=== PATIENT | female | born 1995 | race American Indian/Alaskan Native ===

== ENCOUNTER 2018-05-20 15:15 | Outpatient (CLI) | payer BC, MEDICAID ==
[2018-05-20 16:06] VITALS: BP 120/79
== END 2018-05-20 16:35 | disposition home or self-care (01) ==
LOC: TRG 15:15
PROVIDERS: ATTEND Obstetrics & Gynecology Gynecology
DX: O47.1 False labor at or after 37 completed weeks of gestation (principal); Z3A.38 38 weeks gestation of pregnancy
CPT/HCPCS: 59025

== ENCOUNTER 2018-06-01 10:36 | Inpatient (IN) | payer BC, MEDICAID ==
[2018-06-01] MEDS ORDERED: LACTATED RINGERS 1,000 ML ONE (11:06)
[2018-06-01] MEDS ORDERED: BRETHINE SUB-Q PRN (11:31)
[2018-06-01] MEDS ORDERED: MINERAL OIL PO PRN (11:31)
[2018-06-01] MEDS ORDERED: BRETHINE IVP PRN (11:31)
[2018-06-01] MEDS ORDERED: ePHEDrine SULFATE IV PRN ×2 (11:31→19:33)
[2018-06-01 11:40] LABS: Basophils % (Auto) 0.2 % (0.0-1.8); Eosinophils # (Auto) 0.1 K/mm3 (0.0-0.4); Hematocrit 32.9 % (30.3-42.9); Hemoglobin 10.8 gm/dl (10.1-14.3); Lymphocytes # (Auto) 1.5 K/mm3 (1.2-5.4); Lymphocytes % (Auto) 12.7 % (13.4-35.0); Mean Corpuscular HGB Conc 33 % (30-34); Monocytes # (Auto) 1.1 K/mm3 (0.0-0.8); Monocytes % (Auto) 9.1 % (0.0-7.3); Platelet Count 239 K/mm3 (140-440); Red Cell Distribution Width 15.7 % (13.2-15.2)
[2018-06-01 11:43] LABS: Mean Corpuscular Hemoglobin 23 pg (28-32); Mean Corpuscular Volume 69 fl (79-97)
--- NOTE | 2018-06-01 11:55 | History and Physical Report ---
History of Present Illness Date of examination: 06/01/18 Date of admission: 06/01/18 10:37 Chief complaint: Leaking of water from vagina since 02:00 this morning. History of present illness: Patient presents to L&D with complaint of leaking from vagina since 02:00 this morning. Patient states fluid has been clear. Patient denies vaginal bleeding. Patient received care at [facility] [employer]. records are available. LMP 09/05/17. EDC 06/03/18 based on US performed at 11 weeks, 6 days of gestation. EGA 39 weeks, 5 days gestation today. Patient reports she had anemia during but did not take her iron supplements regularly. She also had an elevated 1 hour sugar test during her but had a normal 3 hour OGTT. Patient has history of genital herpes but has been taking Valtrex for suppression; she denies any lesions or prodromal symptoms. labs are as follows: O+, antibody screen negative, rubella immune, pap negative, RPR nonreactive, hepatitis B surface antigen negative, HIV negative, hemoglobin electrophoresis AA, diabetes screen 141 (3 hr. OGTT: 73, 114, 97, 90) , GC negative, CT negative, GBS positive. Past History Past Medical History: no pertinent history Past Surgical History: no surgical history [employer] History: herpes (on Valtrex suppression; pt. denies lesions or prodromal symptoms). denies: chlamydia, gonorrhea, hepatitis B, hepatitis C, HIV, syphilis Family/Genetic History: diabetes, hypertension Social history: single, lives with family, full code. denies: smoking, alcohol abuse, prescription drug abuse, IV drug use - Obstetrical History Expected Date of Delivery: 06/03/18 Actual Gestation: 39 Week(s) 5 Day(s) : 1 Para: 0 Hx # Term Pregnancies: 1 Number of Pregnancies: 0 Spontaneous Abortions: 0 Induced : 0 Number of Living Children: 0 Medications and Allergies Allergies Allergy/AdvReac Type Severity Reaction Status Date / Time No Known Allergies Allergy Unverified 06/01/18 11:18 Home Medications Medication Instructions Recorded Confirmed Last Taken Type Cholecalciferol (Vitamin D3) 1 cap PO DAILY 05/20/18 06/01/18 05/18/18 History [Vitamin D3] Ferrous Sulfate [Feosol 325 MG tab] 1 tab PO TID 05/20/18 06/01/18 05/18/18 History Pnv No.95/Ferrous Fum/Folic AC 1 tab PO DAILY 05/20/18 06/01/18 05/31/18 21:00 History [ Vitamins Tablet] 1 Valacyclovir HCl [Valtrex] 1,000 mg PO DAILY 05/20/18 06/01/18 05/31/18 21:00 History 1 Active Meds: Active Medications Ephedrine Sulfate (Ephedrine Sulfate) 10 mg IV Q2M PRN PRN Reason: Hypotension Fentanyl (Sublimaze) 100 mcg IV Q2H PRN PRN Reason: Labor Pain Ampicillin Sodium (Polycillin/Ns 2 Gm/100 Ml) 2 gm in 100 mls @ 100 mls/hr IV ONCE ONE; Protocol Stop: 06/01/18 12:59 Lactated Ringer's (Lactated Ringers) 1,000 mls @ 125 mls/hr IV DIRECT OBI Oxytocin/Sodium Chloride (Pitocin/Ns 20 Unit/1000ml Drip) 20 units in 1,000 mls @ 125 mls/hr IV DIRECT OBI Oxytocin/Sodium Chloride (Pitocin/Ns 30 Unit/500ml) 30 units in 500 mls @ 1 mls /hr IV TITR OBI; Protocol Oxytocin/Sodium Chloride (Pitocin/Ns 30 Unit/500ml) 30 units in 500 mls @ 0 mls /hr IV TITR OBI; Protocol Ampicillin Sodium (Ampicillin/Ns 1 Gm/50 Ml) 1 gm in 50 mls @ 100 mls/hr IV Q4H OBI; Protocol Lidocaine (Xylocaine 2%) 20 ml INFILTRATI ONCE ONE Stop: 06/01/18 12:01 Mineral Oil (Mineral Oil) 30 ml PO QHS PRN PRN Reason: Constipation Terbutaline Sulfate (Brethine) 0.25 mg SUB-Q ONCE PRN PRN Reason: Hyperstimulation/Hypertonicity Terbutaline Sulfate (Brethine) 0.25 mg IVP ONCE PRN PRN Reason: Hyperstimulation/Hypertonicity Valacyclovir HCl (Valtrex) 500 mg PO BID OBI Review of Systems All systems: negative (leaking of water from vagina) - Vital Signs Vital signs: Vital Signs Pulse BP 86 135/92 06/01/18 11:00 06/01/18 11:00 Temp Pulse Resp BP Pulse Ox 73 18 129/82 06/01/18 11:31 06/01/18 11:26 06/01/18 11:31 - Physical Exam Breasts: Positive: deferred Cardiovascular: Regular rate, Normal S1, Normal S2, No murmurs Lungs: Positive: Clear to auscultation Abdomen: Positive: normal appearance, soft. Negative: distention, tenderness, guarding, rigidity Genitourinary (Female): Positive: normal external genitalia, normal perenium. Negative: perineal/vulvar lesions (no lesions seen on careful exam with bright light upon admission) Vagina: Positive: other (pooling of clear amniotic fluid) Uterus: Positive: enlarged. Negative: tender Anus/Rectum: Positive: normal perianal skin Extremities: Positive: normal. Negative: tenderness, edema - Obstetrical FHR: category 2 Uterine Contraction Monitor Mode: External Cervical Dilatation: 1 Cervical Effacement Percentage: 70 station: -1 Uterine Contraction Pattern: Irregular Uterine Contraction Intensity: Mild Results Result Diagrams: 06/01/18 11:00 Abnormal lab results 06/01/18 Range/Units 11:00 WBC 11.9 H (4.5-11.0) K/mm3 MCV 69 L (79-97) fl MCH 23 L (28-32) pg RDW 15.7 H (13.2-15.2) % Lymph % (Auto) 12.7 L (13.4-35.0) % Hall % (Auto) 9.1 H (0.0-7.3) % Hall # 1.1 H (0.0-0.8) K/mm3 Seg Neutrophils % 77.0 H (40.0-70.0) % Seg Neutrophils # 9.2 H (1.8-7.7) K/mm3 All other labs normal. Assessment and Plan A: at 39 weeks, 5 days gestation. Spontaneous rupture of membranes prior to labor. GBS positive. HSV 2 positive on Valtrex suppression. P: Admit. GBS prophylaxis. Continue Valtrex suppression. Pitocin augmentation of labor. Continuous EFM. Discussed with patient risks and benefits of Pitocin augmentation of labor. Patient consented to Pitocin augmentation of labor.
[2018-06-01] MEDS ORDERED: LACTATED RINGERS 1,000 ML IV SCH (12:00)
[2018-06-01] MEDS ORDERED: PITOCin/NS 30 UNIT/500ML 30 UNITS/500 ML BAG IV SCH ×2 (12:00)
[2018-06-01] MEDS ORDERED: XYLOCAINE 2% INFILTRATI ONE (12:00)
[2018-06-01] MEDS: LACTATED RINGERS 1,000 ML IV SCH ×2 (12:00→18:39)
[2018-06-01] MEDS ORDERED: POLYCILLIN/NS 2 GM/100 ML 2 GM/100 ML BAG IV ONE (12:00)
[2018-06-01] MEDS ORDERED: PITOCin/NS 20 UNIT/1000ML DRIP 20 UNITS/1,000 ML BAG IV SCH (12:00)
[2018-06-01] MEDS ORDERED: VALTREX PO SCH (12:00)
[2018-06-01 12:14] LABS: Alanine Aminotransferase 7 units/L (7-56); Uric Acid 3.3 mg/dL (3.5-7.6)
[2018-06-01] MEDS: SUBLIMAZE IV PRN ×2 (12:49→15:03)
[2018-06-01 14:27] LABS: Hematocrit 33.8 % (30.3-42.9); Hemoglobin 10.7 gm/dl (10.1-14.3); Mean Corpuscular HGB Conc 32 % (30-34); Platelet Count 247 K/mm3 (140-440); Red Blood Count 4.86 M/mm3 (3.65-5.03); Red Cell Distribution Width 15.4 % (13.2-15.2)
[2018-06-01 14:31] LABS: Bilirubin,Urine NEG (Negative); Blood,Urine SM (Negative); Color,Urine Yellow (Yellow); Hyaline Casts,Urine 1 /LPF; Mucus,Urine FEW /HPF; Protein,Urine <15 mg/dL mg/dL (Negative)
[2018-06-01 14:33] LABS: Mean Corpuscular Hemoglobin 22 pg (28-32); Mean Corpuscular Volume 70 fl (79-97)
[2018-06-01 14:38] LABS: Alanine Aminotransferase 7 units/L (7-56); Albumin 3.8 g/dL (3.9-5); BUN/Creatinine Ratio 14; Blood Urea Nitrogen 7 mg/dL (7-17); Calcium 8.9 mg/dL (8.4-10.2); Hemolysis Index 1
[2018-06-01 14:40] LABS: Amphetamine Screen,Urine PRESUMPTIVE NEGATIVE; Benzodiazepines Screen,Urine PRESUMPTIVE NEGATIVE; Cannabinoid Screen,Urine PRESUMPTIVE NEGATIVE; Cocaine Screen,Urine PRESUMPTIVE NEGATIVE; Methadone Screen,Urine PRESUMPTIVE NEGATIVE; Opiate Screen,Urine PRESUMPTIVE NEGATIVE
[2018-06-01] MEDS ORDERED: ZOFRAN IV ONE (14:50)
[2018-06-01] MEDS ORDERED: ZOFRAN ONE (14:55)
[2018-06-01] MEDS: AMPICILLIN/NS 1 GM/50 ML 1 GM/50 ML BAG IV SCH ×2 (16:17→20:14)
[2018-06-01] MEDS ORDERED: STADOL IV PRN (17:00)
[2018-06-01] MEDS ORDERED: NARCAN 2 MG/2 ML IV PRN (19:33)
--- NOTE | 2018-06-01 19:35 | Anesthesia Consultation ---
Anesthesia Consult and Med Hx Date of service: 06/01/18 - Airway Anesthetic Teeth Evaluation: Good ROM Head & Neck: Adequate Mental/Hyoid Distance: Adequate Mallampati Class: Class II Intubation Access Assessment: Probably Good - Pulmonary Exam CTA: Yes - Cardiac Exam Cardiac Exam: RRR - Pre-Operative Health Status ASA Pre-Surgery Classification: ASA2 Proposed Anesthetic Plan: Epidural, Spinal - Pulmonary Hx Smoking: No Hx Asthma: No COPD: No Hx Pneumonia: No - Cardiovascular System Hx Hypertension: No - Central Nervous System Hx Seizures: No Hx Psychiatric Problems: No - Endocrine Hx Renal Disease: No Hx End Stage Renal Disease: No Hx Hypothyroidism: No Hx Hyperthyroidism: No - Hematic Hx Anemia: Yes (ON IRON TID) Hx Sickle Cell Disease: No - Other Systems Hx Alcohol Use: No
--- NOTE | 2018-06-01 19:35 | Anesthesia Day of Surgery ---
Anesthesia Day of Surgery - Day of Surgery Patient Examined: Yes Patient H&P Reviewed: Yes Patient is NPO: Yes
[2018-06-01] MEDS ORDERED: fentaNYL-BUPIV 2 MCG/ML-0.125% 200 MCG/100 ML BAG EPIDURAL SCH (20:00)
[2018-06-01] MEDS ORDERED: CYTOTEC ONE (23:54)
[2018-06-02] MEDS ORDERED: PHENERGAN PR PRN (00:22)
[2018-06-02] MEDS ORDERED: LANSINOH TP PRN (00:22)
[2018-06-02] MEDS ORDERED: TYLENOL PO PRN (00:22)
[2018-06-02] MEDS ORDERED: TUCKS PAD TP PRN (00:22)
[2018-06-02] MEDS ORDERED: CYTOTEC PR ONE (00:35)
--- NOTE | 2018-06-02 00:45 | Procedure Note ---
OB Delivery Note - Delivery Date of Delivery: 06/01/18 Surgeon: TA MELGOZA Estimated blood loss: other (400 cc) - Vaginal Delivery presentation: vertex Delivery position: OA Delivery induction: oxytocin Delivery monitor: external FHT, external uterine Route of delivery: Delivery placenta: manual Delivery cord: 3 umbilical vessels Episiotomy: none Delivery laceration: none Anesthesia: epidural Delivery comments: of liveborn female infant weighing 6 lb. 11.5 oz. over intact perineum with apgars of 8/9. Baby placed immediately on maternal chest after delivery. Spontaneous cry and respirations. Baby bulb suctioned. Manual removal of placenta; EBL 400 cc. Pitocin to IV fluids after delivery of placenta. Cytotec 800 mcg per rectum. Fundus firm and midline. No lacerations noted. Vaginal sweep negative. Sponge count correct.
[2018-06-02] MEDS ORDERED: SODIUM CHLORIDE FLUSH SYRINGE 10 ML IV PRN (01:00)
[2018-06-02] MEDS: MOTRIN PO SCH ×2 (01:55→12:36)
[2018-06-02] MEDS: METHERGINE PO SCH ×4 (01:55→21:26)
[2018-06-02] MEDS ORDERED: CLEOCIN 900 MG/50 mL 900 MG/50 ML BAG IV SCH ×2 (02:00→12:30)
[2018-06-02] MEDS ORDERED: CLEOCIN 900 MG/50 mL 900 MG/50 ML BAG IV ONE (02:17)
[2018-06-02 03:02] LABS: Hematocrit 29.2 % (30.3-42.9); Hemoglobin 8.9 gm/dl (10.1-14.3)
[2018-06-02] MEDS: NORCO 5/325 PO PRN ×3 (04:21→21:25)
[2018-06-02] MEDS ORDERED: POLYCILLIN/NS 2 GM/100 ML 2 GM/100 ML BAG IV ONE (07:00)
[2018-06-02] MEDS: FEOSOL PO SCH ×2 (09:42→21:25)
[2018-06-02] MEDS: COLACE PO SCH ×2 (09:42→21:26)
[2018-06-02 09:43] LABS: Hematocrit 29.3 % (30.3-42.9); Mean Corpuscular HGB Conc 31 % (30-34); Mean Corpuscular Volume 71 fl (79-97); Platelet Count 214 K/mm3 (140-440); Red Blood Count 4.16 M/mm3 (3.65-5.03); Red Cell Distribution Width 15.4 % (13.2-15.2)
[2018-06-02 09:46] LABS: Mean Corpuscular Hemoglobin 22 pg (28-32)
[2018-06-02] MEDS ORDERED: GARAMYCIN IV SCH (14:00)
[2018-06-02] MEDS ORDERED: NACL 0.9% IV SCH (14:00)
[2018-06-02] MEDS: GARAMYCIN/NS 100 MG/100 ML 100 MG/100 ML BAG IV SCH ×2 (14:12→21:27)
[2018-06-02] MEDS ORDERED: FIORICET PO ONE (16:49)
--- NOTE | 2018-06-02 18:46 | Progress Note ---
Assessment and Plan A: PPD #1 - stable P; Discharge home tomorrow pm Subjective - Subjective Date of service: 06/02/18 Principal diagnosis: Patient reports: appetite normal : doing well Objective - Vital Signs Latest vital signs: Vital Signs Temp Temp Pulse Resp BP BP Pulse Ox 06/02/18 12:25 97.5 F L 69 18 113/61 06/02/18 08:03 98 F 65 18 124/64 06/02/18 05:00 98.4 F 06/02/18 04:21 18 06/02/18 03:00 100.3 F H 70 18 132/74 06/02/18 00:52 98.1 F 88 18 134/71 134/71 06/02/18 00:42 97.7 F 165 H 50 H 06/02/18 00:37 90 18 133/80 133/80 06/02/18 00:23 96 H 18 132/74 132/74 06/02/18 00:07 107 H 18 120/59 120/59 06/02/18 00:06 115 H 117/59 06/01/18 23:38 122 H 124/103 06/01/18 23:34 135 H 98 06/01/18 23:29 87 100 06/01/18 23:24 105 H 142/88 06/01/18 23:23 99 H 99 06/01/18 23:19 94 H 99 06/01/18 23:14 100 H 100 06/01/18 23:09 97 H 99 06/01/18 23:08 102 H 148/81 06/01/18 23:04 96 H 100 06/01/18 22:59 102 H 100 06/01/18 22:54 97 H 136/77 99 06/01/18 22:49 93 H 100 06/01/18 22:44 91 H 99 06/01/18 22:39 71 100 06/01/18 22:37 90 135/77 06/01/18 22:34 74 100 06/01/18 22:29 76 100 06/01/18 22:24 93 H 99 06/01/18 22:23 79 134/75 06/01/18 22:20 87 83 L 06/01/18 22:19 82 99 06/01/18 22:14 85 100 06/01/18 22:08 78 123/66 99 07/22/18 22:04 67 99 07/18 21:59 78 99 06/01/18 21:54 69 99 18 21:52 57 L 125/65 18 21:49 74 100 07/18 21:44 72 100 06/01/18 21:40 69 123/57 18 21:39 63 99 06/01/18 21:33 76 99 07/18 21:29 67 99 06/01/18 21:24 68 118/57 99 07/18 21:19 71 100 07/18 21:13 74 99 07/18 21:09 71 99 18 21:08 69 142/65 18 21:04 78 99 18 20:58 71 100 18 20:53 75 135/65 100 18 20:49 71 100 18 20:43 71 100 18 20:39 78 124/56 06/01/18 20:38 84 100 18 20:33 77 100 18 20:28 75 100 18 20:23 69 99 18 20:21 68 137/91 06/01/18 20:20 71 93 18 20:19 63 132/78 97 18 20:17 67 137/76 18 20:15 67 141/80 18 20:14 64 79 L 06/01/18 20:13 65 139/78 06/01/18 20:11 71 151/80 18 20:09 71 145/80 46 L 18 20:08 90 30 L 18 20:07 67 142/75 18 20:05 78 132/78 18 20:04 88 162/96 18 20:03 77 95 18 20:01 104 H 138/85 18 19:59 75 127/68 18 19:58 73 99 18 19:57 66 142/75 18 19:55 83 142/74 18 19:53 87 132/65 99 07/22/18 19:51 71 125/64 06/01/18 19:50 72 135/65 06/01/18 19:48 78 99 06/01/18 19:46 76 143/75 06/01/18 19:43 88 99 06/01/18 19:39 83 153/89 06/01/18 19:38 95 H 99 06/01/18 19:37 80 138/82 06/01/18 19:35 78 126/74 06/01/18 19:33 91 H 138/84 99 06/01/18 19:31 68 129/71 06/01/18 19:30 98.1 F 06/01/18 19:29 77 130/75 49 L 06/01/18 19:28 71 91 06/01/18 19:27 80 131/76 06/01/18 19:25 86 128/74 06/01/18 19:24 88 91 06/01/18 19:23 45 L 135/79 65 L 06/01/18 19:21 80 134/74 06/01/18 19:19 85 135/80 06/01/18 19:18 90 100 06/01/18 19:17 86 131/69 06/01/18 19:15 93 H 120/68 06/01/18 19:13 85 118/64 99 06/01/18 19:11 82 128/72 06/01/18 19:09 99 H 129/74 06/01/18 19:08 95 H 99 06/01/18 19:07 83 123/73 06/01/18 19:05 81 121/71 06/01/18 19:03 72 118/64 100 06/01/18 19:01 83 125/69 06/01/18 18:58 70 100 06/01/18 18:53 62 100 06/01/18 18:51 69 125/68 06/01/18 18:49 92 H 98 Intake and Output 06/02/18 06/02/18 06/02/18 06:59 14:59 22:59 Intake Total 240 680 Output Total 700 300 Balance -460 380 Intake: Oral 680 Intake, Free Water 240 Output: Urine 700 300 Void 700 300 Other: Total, Intake Amount 320 Total, Output Amount 400 300 Estimated Blood Loss 400 - Exam Breasts: Present: deferred Cardiovascular: Present: Regular rate Lungs: Present: Clear to auscultation Abdomen: Present: soft Vulva: both: normal Uterus: Present: fundal height below umbilicus Extremities: Present: normal Deep Tendon Reflex Grade: Normal +2 - Labs Labs: Abnormal lab results 06/02/18 06/02/18 Range/Units 02:05 02:05 WBC 21.2 H (4.5-11.0) K/mm3 Hgb 8.9 L 9.0 L (10.1-14.3) gm/dl Hct 29.2 L 29.3 L (30.3-42.9) % MCV 71 L (79-97) fl MCH 22 L (28-32) pg RDW 15.4 H (13.2-15.2) %
--- NOTE | 2018-06-02 18:47 | Discharge Summary ---
Providers - Providers Date of Admission: 06/01/18 10:37 Date of discharge: 06/03/18 Attending physician: OSCAR MALIK Primary care physician: OSCAR MALIK Hospitalization Reason for admission: induction of labor, rupture of membranes Delivery: Episiotomy: none Laceration: none Incision: normal Other procedures: none complications: none Discharge diagnosis: IUP at term delivered baby: female Condition at discharge: Good Disposition: DC-01 TO HOME OR SELFCARE Plan - Provider Discharge Summary Activity: routine, no sex for 6 weeks, no strenuous exercise Diet: routine Instructions: routine Additional instructions: [] Smoking cessation referral if applicable(refer to patient education folder for contact #) [] Refer to [facility] Booklet Call your doctor immediately for: * Fever > 100.5 * Heavy vaginal bleeding ( >1 pad per hour) * Severe persistent headache * Shortness of breath * Reddened, hot, painful area to leg or breast * Drainage or odor from incision. * Keep incision clean and dry at all times and follow doctor's instructions regarding bathing/showering - Follow up plan Follow up: ERINN SANZ MD [Staff Physician] - 6 Weeks
[2018-06-03] MEDS: MOTRIN PO SCH ×2 (00:21→17:02)
[2018-06-03] MEDS ORDERED: ZOFRAN IV PRN (01:47)
[2018-06-03] MEDS ORDERED: TORADOL IV PRN (01:48)
[2018-06-03] MEDS: GARAMYCIN/NS 100 MG/100 ML 100 MG/100 ML BAG IV SCH ×2 (06:27→14:36)
[2018-06-03] MEDS ORDERED: NACL 0.9% 1000 ML 1,000 ML IV SCH (10:00)
--- NOTE | 2018-06-03 10:35 | Progress Note ---
Subjective Date of service: 06/03/18 Principal diagnosis: Interval history: Notified by obstetrics of suspected post dural puncture headache. Patient evaluated confirming headache is positional. Remainder of evaluation unchanged. No neurologic deficits found. Conservative measures failed. Explained the process to the patient. Patient consented to a blood patch. Time out. The AA Devon Rodriguez) placed the tuohey and I obtained the blood. Sterile prep/drape, 1% lido to skin, tuohey to space TAN to saline, 15ml of autologous blood delivered to epidural space, Tuohey removed, sterile bandage placed. Headache subsiding. No obvious complication. [id number] Exp: 07/11/2019 Objective - Constitutional Vitals: Vital Signs - 12hr 06/03/18 06/03/18 06/03/18 00:00 00:21 01:56 Temperature 98.7 F Pulse Rate 71 Respiratory 16 20 20 Rate Blood Pressure Blood Pressure 107/69 [Left] O2 Sat by Pulse Oximetry 06/03/18 07:40 Temperature 99.8 F H Pulse Rate 81 Respiratory 20 Rate Blood Pressure 127/77 Blood Pressure [Left] O2 Sat by Pulse 97 Oximetry - Labs CBC & Chem 7: 06/02/18 02:05 06/01/18 13:56
[2018-06-03] MEDS: FEOSOL PO SCH (10:59)
[2018-06-03] MEDS: COLACE PO SCH (11:00)
[2018-06-03] MEDS: METHERGINE PO SCH ×2 (11:00→17:02)
[2018-06-03] MEDS: NORCO 5/325 PO PRN (17:02)
[2018-06-03 17:06] VITALS: BP 126/72
== END 2018-06-03 19:00 | disposition home or self-care (01) | DRG 774 ==
LOC: TRG 10:36 → LD 10:37 → OB 06-02 02:04
PROVIDERS: ADMIT Obstetrics & Gynecology Gynecology; ATTEND Obstetrics & Gynecology Gynecology
PROC: 10E0XZZ Delivery of Products of Conception, External Approach (ICD-10-PCS; principal; 2018-06-01)
PROC: 3E033VJ Introduction of Other Hormone into Peripheral Vein, Percutaneous Approach (ICD-10-PCS; 2018-06-01)
PROC: 3E0R3BZ Introduction of Anesthetic Agent into Spinal Canal, Percutaneous Approach (ICD-10-PCS; 2018-06-01)
PROC: 00HU33Z Insertion of Infusion Device into Spinal Canal, Percutaneous Approach (ICD-10-PCS; 2018-06-01)
PROC: 3E0R3GC Introduction of Other Therapeutic Substance into Spinal Canal, Percutaneous Approach (ICD-10-PCS; 2018-06-03)
DX: O99.824 Streptococcus B carrier state complicating childbirth (principal); O98.52 Other viral diseases complicating childbirth; Z37.0 Single live birth; O99.02 Anemia complicating childbirth; D64.9 Anemia, unspecified; B00.9 Herpesviral infection, unspecified; R51 Headache; O99.355 Diseases of the nervous system complicating the puerperium; Z3A.39 39 weeks gestation of pregnancy; Z79.899 Other long term (current) drug therapy
CPT/HCPCS: 36415; 80053; 80307; 81001; 82565; 83615; 84450; 84460; 84550; 85014; 85018; 85025; 85027; 86592; 86850; 86900; 86901; 87086; 88307; 99211; G0463; J0290; J0595; J1580; J1885; J2405; J2590; J3010; J7030; J7120